=== PATIENT | female | born 1965 | race Caucasian/White ===

== ENCOUNTER 2022-11-13 14:39 | Inpatient (IN) | payer MEDICAID, OTHER ==
[2022-11-13] MEDS ORDERED: PERCOCET 5MG/325MG TAB PO ONE (18:25)
[2022-11-13] MEDS ORDERED: PERCOCET 5MG/325MG TAB PO PRN ×2 (18:25)
[2022-11-13] MEDS ORDERED: PROMETHAZINE 25MG/ML 1ML VIAL IV PRN (18:35)
[2022-11-13 18:51] LABS: HEMATOCRIT 29.5 % (36.0-47.0); HEMOGLOBIN 8.2 g/dl (12.0-15.5); MEAN CORPUSCULAR HEMOGLOBIN 19.9 pg (27.0-33.0); MEAN CORPUSCULAR HGB CONC 27.8 g/dl (32.0-36.5); MEAN CORPUSCULAR VOLUME 71.6 fl (80.0-96.0); PLATELET COUNT, AUTOMATED 659 10^3/uL (150-450); RED BLOOD COUNT 4.12 10^6/uL (4.00-5.40); WHITE BLOOD COUNT 5.9 10^3/uL (4.0-10.0)
[2022-11-13 18:54] VITALS: BP 176/98
[2022-11-13 19:02] LABS: INR 0.95; PROTHROMBIN TIME 12.9 SECONDS (12.5-14.5)
[2022-11-13] MEDS ORDERED: amLODIPine 5 MG TAB PO ONE ×2 (19:10→21:15)
[2022-11-13] MEDS ORDERED: MORPHINE 2 MG/ML 1ML VIAL IV PRN (19:10)
[2022-11-13 19:13] LABS: VENOUS BASE EXCESS 1.2 (-2.0-2.0); VENOUS HCO3 27.2 MMOL/L (23.0-27.0); VENOUS O2 SATURATION 80.3 % (60.0-80.0); VENOUS PARTIAL PRESSURE CO2 50.1 mmHg (38.0-50.0); VENOUS PARTIAL PRESSURE O2 47.8 mmHg (30.0-50.0); VENOUS PH 7.353 UNITS (7.330-7.430); VENOUS STANDARD HCO3 25.3 MMOL/L; VENOUS TOTAL CO2 28.8 MMOL/L (24.0-28.0)
[2022-11-13 19:20] LABS: ALBUMIN 3.2 G/DL (3.2-5.2); ALKALINE PHOSPHATASE 97 U/L (46-116); ALT/SGPT 24 U/L (7.0-40); AST/SGOT 15 U/L (<34); BILIRUBIN,TOTAL 0.3 MG/DL (0.3-1.2); BLOOD UREA NITROGEN 16 MG/DL (9-23); CALCIUM LEVEL 9.2 MG/DL (8.5-10.1); CARBON DIOXIDE LEVEL 27 MMOL/L (20-31); CHLORIDE LEVEL 106 MMOL/L (98-107); CK-MB VALUE MASS 1.3 NG/ML (<3.6); CREATININE FOR GFR 0.62 MG/DL (0.55-1.30); GLOMERULAR FILTRATION RATE > 60.0 (>51); GLUCOSE, FASTING 89 MG/DL (60-100); POTASSIUM SERUM 4.4 MMOL/L (3.5-5.1); SODIUM LEVEL 140 MMOL/L (136-145); TOTAL PROTEIN 6.1 G/DL (5.7-8.2)
[2022-11-13 19:21] LABS: PERCENT SATURATION 3.5 % (13.2-45.0)
[2022-11-13 19:22] LABS: MB/CK RELATIVE INDEX 1.27 (< OR =4)
[2022-11-13 19:23] LABS: FERRITIN 7.3 NG/ML (7.3-270.7)
[2022-11-13 20:00] VITALS: BP 147/92
[2022-11-13] MEDS ORDERED: ISOVUE-370 76% 100ML VIAL As Ordered ONE (20:06)
[2022-11-13] MEDS ORDERED: diphenhydrAMINE 25MG CAP PO PRN (20:10)
[2022-11-13] MEDS ORDERED: ALEV220T22 PO (20:24)
[2022-11-13] MEDS ORDERED: OMEP1CAP73 PO (20:24)
[2022-11-13] MEDS ORDERED: HOME MED LIST COMPLETE! XX SCH (20:25)
[2022-11-13] MEDS: PANTOPRAZOLE 40MG VIAL IV SCH (21:06)
[2022-11-13] MEDS: SUCRALFATE SUSP 1GM/10ML UD PO SCH (21:07)
[2022-11-13] MEDS ORDERED: GI COCKTAIL 50ML BTL(HYOSCYAMINE/MAALOX/LIDOCAINE VISCOUS)(1:3:1) PO PRN (21:15)
[2022-11-14 06:00] VITALS: BP 127/80
[2022-11-14] MEDS: ISOSORBIDE DIN (ISORDIL) 10MG TAB PO SCH ×3 (06:35→21:01)
[2022-11-14 07:14] LABS: HEMATOCRIT 29.9 % (36.0-47.0); HEMOGLOBIN 8.3 g/dl (12.0-15.5); MEAN CORPUSCULAR HEMOGLOBIN 19.8 pg (27.0-33.0); MEAN CORPUSCULAR HGB CONC 27.8 g/dl (32.0-36.5); MEAN CORPUSCULAR VOLUME 71.2 fl (80.0-96.0); PLATELET COUNT, AUTOMATED 686 10^3/uL (150-450); WHITE BLOOD COUNT 5.8 10^3/uL (4.0-10.0)
[2022-11-14] MEDS ORDERED: BISACODYL 10MG SUPP PR ONE (07:15)
[2022-11-14 07:22] LABS: BARBITURATES URINE NEGATIVE (NEGATIVE); COCAINE METABOLITE URINE NEGATIVE (NEGATIVE)
[2022-11-14 07:23] LABS: BENZODIAZEPINES URINE NEGATIVE (NEGATIVE); CANNABINOIDS URINE NEGATIVE (NEGATIVE); METHADONE URINE NEGATIVE (NEGATIVE); OPIATES URINE NEGATIVE (NEGATIVE); PHENCYCLIDINE URINE NEGATIVE (NEGATIVE)
[2022-11-14 07:29] LABS: AMPHETAMINES LEVEL URINE POSITIVE (NEGATIVE)
[2022-11-14 07:43] LABS: BLOOD UREA NITROGEN 11 MG/DL (9-23); CALCIUM LEVEL 8.2 MG/DL (8.5-10.1); CARBON DIOXIDE LEVEL 25 MMOL/L (20-31); CHLORIDE LEVEL 105 MMOL/L (98-107); GLOMERULAR FILTRATION RATE > 60.0 (>51); GLUCOSE, FASTING 85 MG/DL (60-100); POTASSIUM SERUM 4.2 MMOL/L (3.5-5.1); SODIUM LEVEL 139 MMOL/L (136-145)
[2022-11-14] MEDS: D5W/0.45% SODIUM CHLORIDE 1,000 ML IV SCH ×2 (09:17→17:15)
[2022-11-14] MEDS: PANTOPRAZOLE 40MG VIAL IV SCH ×2 (09:18→20:59)
[2022-11-14] MEDS: SUCRALFATE SUSP 1GM/10ML UD PO SCH ×4 (09:19→20:59)
[2022-11-14] MEDS ORDERED: E-Z-GAS II EFFERVESCENT PACKET (SODIUM BICARB./CITRIC ACID/SIMETHICONE) As Ordered ONE (12:19)
[2022-11-14] MEDS ORDERED: E-Z-PAQUE 96% w/w SUSP 176GM BTL As Ordered ONE (12:19)
[2022-11-14] MEDS ORDERED: E-Z-HD 98% w/w 340GM SUSP BTL As Ordered ONE (12:19)
[2022-11-14 14:00] VITALS: BP 122/75
[2022-11-14] MEDS ORDERED: ACETAMINOPHEN TAB 650MG DOSE (2X325MG) PO PRN (14:50)
[2022-11-14 21:08] VITALS: BP 121/76
[2022-11-15] MEDS: ISOSORBIDE DIN (ISORDIL) 10MG TAB PO SCH (05:26)
[2022-11-15 06:00] VITALS: BP 128/76
[2022-11-15 06:09] LABS: HEMATOCRIT 30.8 % (36.0-47.0); HEMOGLOBIN 8.6 g/dl (12.0-15.5); MEAN CORPUSCULAR HEMOGLOBIN 19.8 pg (27.0-33.0); MEAN CORPUSCULAR HGB CONC 27.9 g/dl (32.0-36.5); PLATELET COUNT, AUTOMATED 747 10^3/uL (150-450); RED BLOOD COUNT 4.34 10^6/uL (4.00-5.40); WHITE BLOOD COUNT 5.2 10^3/uL (4.0-10.0)
[2022-11-15 06:20] LABS: BLOOD UREA NITROGEN 11 MG/DL (9-23); CALCIUM LEVEL 8.4 MG/DL (8.5-10.1); CARBON DIOXIDE LEVEL 25 MMOL/L (20-31); CHLORIDE LEVEL 107 MMOL/L (98-107); CREATININE FOR GFR 0.53 MG/DL (0.55-1.30); GLOMERULAR FILTRATION RATE > 60.0 (>51); GLUCOSE, FASTING 94 MG/DL (60-100); SODIUM LEVEL 140 MMOL/L (136-145)
[2022-11-15] MEDS ORDERED: PROT1TAB2 PO (10:11)
[2022-11-15] MEDS ORDERED: CARA1TAB6 PO (10:11)
[2022-11-15] MEDS ORDERED: PERCOCET PO (10:11)
[2022-11-15] MEDS ORDERED: FERR1TAB8 PO (10:14)
[2022-11-15] MEDS ORDERED: MIRA3350 PO (10:14)
[2022-11-15] MEDS ORDERED: SENO8.6T10 PO (10:14)
[2022-11-15] MEDS ORDERED: VITA500C19 PO (10:14)
[2022-11-15 10:15] VITALS: BP 148/96
[2022-11-15] MEDS: PANTOPRAZOLE 40MG VIAL IV SCH (10:15)
[2022-11-15] MEDS: SUCRALFATE SUSP 1GM/10ML UD PO SCH (10:15)
[2022-11-15] MEDS ORDERED: AMLO10TA PO (10:16)
[2022-11-15] MEDS ORDERED: SELF1KIT MC (10:16)
== END 2022-11-15 11:22 | disposition home or self-care (01) | DRG 253 ==
LOC: PREINTOOBSV 17:32 → M MSPAV 17:38 → OBSVTOIN 17:48
PROVIDERS: ADMIT Family Medicine; ATTEND General Practice
DX: K92.2 Gastrointestinal hemorrhage, unspecified (principal); N28.1 Cyst of kidney, acquired; M41.9 Scoliosis, unspecified; F17.210 Nicotine dependence, cigarettes, uncomplicated; K21.9 Gastro-esophageal reflux disease without esophagitis; K59.00 Constipation, unspecified; Z88.1 Allergy status to other antibiotic agents; Z71.6 Tobacco abuse counseling; Z90.49 Acquired absence of other specified parts of digestive tract

== ENCOUNTER → 2022-11-13 | Outpatient (CLI) | payer MEDICAID ==
[~2022-11-13] MED LIST: ALEV220T22 PO; OMEP1CAP73 PO
[2022-11-13 12:29] LABS: LDH LACTATE DEHYDROGENASE 368 U/L (120-246)
[2022-11-13 12:30] LABS: ALBUMIN 3.5 G/DL (3.2-5.2); ALKALINE PHOSPHATASE 101 U/L (46-116); ALT/SGPT 20 U/L (7.0-40); AST/SGOT 41 U/L (<34); BILIRUBIN,TOTAL 0.3 MG/DL (0.3-1.2); BLOOD UREA NITROGEN 14 MG/DL (9-23); CARBON DIOXIDE LEVEL 26 MMOL/L (20-31); CHLORIDE LEVEL 105 MMOL/L (98-107); CREATININE FOR GFR 0.58 MG/DL (0.55-1.30); FERRITIN 8.4 NG/ML (7.3-270.7); GLOMERULAR FILTRATION RATE > 60.0 (>51); GLUCOSE, FASTING 83 MG/DL (60-100); IRON (FE) 20 UG/DL (50-170); PERCENT SATURATION 4.7 % (13.2-45.0); POTASSIUM SERUM 4.1 MMOL/L (3.5-5.1); SODIUM LEVEL 140 MMOL/L (136-145); TOTAL IRON BINDING CAPACITY 428 UG/DL (250-425); TOTAL PROTEIN 6.4 G/DL (5.7-8.2)
[2022-11-13 12:31] LABS: BASO # 0.1 10^3/uL (0.0-0.2); BASO % 2.2 % (0.0-1.0); EOS # 0.3 10^3/uL (0.0-0.5); EOS % 6.2 % (0.0-3.0); HEMATOCRIT 27.8 % (36.0-47.0); HEMOGLOBIN 7.9 g/dl (12.0-15.5); LYMPH # 1.6 10^3/uL (1.5-5.0); LYMPH % 32.7 % (24.0-44.0); MEAN CORPUSCULAR HEMOGLOBIN 19.8 pg (27.0-33.0); MEAN CORPUSCULAR HGB CONC 28.4 g/dl (32.0-36.5); MEAN CORPUSCULAR VOLUME 69.7 fl (80.0-96.0); MONO # 0.4 10^3/uL (0.0-0.8); MONO % 7.8 % (2.0-8.0); NEUTROPHILS # 2.5 10^3/uL (1.5-8.5); NEUTROPHILS % 50.3 % (36.0-66.0); PLATELET COUNT, AUTOMATED 645 10^3/uL (150-450); RED BLOOD COUNT 3.99 10^6/uL (4.00-5.40); VITAMIN B12 LEVEL 531 PG/ML (211-911)
[2022-11-13 12:34] LABS: FOLATE > 24.0 NG/ML (>5.4)
== END ==
LOC: M LAB 11:08
PROVIDERS: ATTEND Family Medicine
DX: D64.9 Anemia, unspecified (principal); E83.51 Hypocalcemia; R79.89 Other specified abnormal findings of blood chemistry

== ENCOUNTER → 2022-11-25 | Outpatient (REF) | payer MEDICAID ==
[~2022-11-25] MED LIST changes: +AMLO10TA PO; +CARA1TAB6 PO; +FERR1TAB8 PO; +MIRA3350 PO; +PERCOCET PO; +PROT1TAB2 PO; +SELF1KIT MC; +SENO8.6T10 PO; +VITA500C19 PO
[2022-11-25 12:03] LABS: BASO # 0.1 10^3/uL (0.0-0.2); BASO % 1.5 % (0.0-1.0); EOS # 0.6 10^3/uL (0.0-0.5); EOS % 10.1 % (0.0-3.0); HEMATOCRIT 31.8 % (36.0-47.0); HEMOGLOBIN 9.1 g/dl (12.0-15.5); LYMPH # 1.9 10^3/uL (1.5-5.0); LYMPH % 30.6 % (24.0-44.0); MEAN CORPUSCULAR HEMOGLOBIN 21.3 pg (27.0-33.0); MEAN CORPUSCULAR HGB CONC 28.6 g/dl (32.0-36.5); MEAN CORPUSCULAR VOLUME 74.3 fl (80.0-96.0); MONO # 0.6 10^3/uL (0.0-0.8); MONO % 9.7 % (2.0-8.0); NEUTROPHILS # 2.9 10^3/uL (1.5-8.5); NEUTROPHILS % 47.9 % (36.0-66.0); PLATELET COUNT, AUTOMATED 674 10^3/uL (150-450); RED BLOOD COUNT 4.28 10^6/uL (4.00-5.40); WHITE BLOOD COUNT 6.1 10^3/uL (4.0-10.0)
[2022-11-25 12:09] LABS: ALBUMIN 3.3 G/DL (3.2-5.2); ALKALINE PHOSPHATASE 94 U/L (46-116); ALT/SGPT 20 U/L (7.0-40); AST/SGOT 34 U/L (<34); BILIRUBIN,TOTAL 0.3 MG/DL (0.3-1.2); BLOOD UREA NITROGEN 12 MG/DL (9-23); CARBON DIOXIDE LEVEL 26 MMOL/L (20-31); CHLORIDE LEVEL 106 MMOL/L (98-107); CREATININE FOR GFR 0.59 MG/DL (0.55-1.30); GLOMERULAR FILTRATION RATE > 60.0 (>51); GLUCOSE, FASTING 98 MG/DL (60-100); POTASSIUM SERUM 4.4 MMOL/L (3.5-5.1); SODIUM LEVEL 140 MMOL/L (136-145); TOTAL PROTEIN 6.1 G/DL (5.7-8.2)
== END ==
LOC: M SFHCLERA 08:09
PROVIDERS: ATTEND Family Medicine
DX: D64.9 Anemia, unspecified (principal); R10.11 Right upper quadrant pain

== ENCOUNTER → 2022-12-29 | Outpatient (REF) | payer MEDICAID ==
[2022-12-29 19:33] LABS: BASO # 0.1 10^3/uL (0.0-0.2); BASO % 1.4 % (0.0-1.0); EOS # 0.3 10^3/uL (0.0-0.5); EOS % 6.2 % (0.0-3.0); HEMATOCRIT 38.2 % (36.0-47.0); HEMOGLOBIN 11.5 g/dl (12.0-15.5); LYMPH # 2.2 10^3/uL (1.5-5.0); LYMPH % 43.1 % (24.0-44.0); MEAN CORPUSCULAR HEMOGLOBIN 24.6 pg (27.0-33.0); MEAN CORPUSCULAR HGB CONC 30.1 g/dl (32.0-36.5); MEAN CORPUSCULAR VOLUME 81.6 fl (80.0-96.0); MONO # 0.5 10^3/uL (0.0-0.8); MONO % 9.8 % (2.0-8.0); NEUTROPHILS % 39.3 % (36.0-66.0); PLATELET COUNT, AUTOMATED 466 10^3/uL (150-450); RED BLOOD COUNT 4.68 10^6/uL (4.00-5.40)
[2022-12-29 20:19] LABS: BLOOD UREA NITROGEN 14 MG/DL (9-23); CARBON DIOXIDE LEVEL 24 MMOL/L (20-31); CHLORIDE LEVEL 108 MMOL/L (98-107); CREATININE FOR GFR 0.61 MG/DL (0.55-1.30); GLOMERULAR FILTRATION RATE > 60.0 (>51); GLUCOSE, FASTING 93 MG/DL (60-100); POTASSIUM SERUM 4.3 MMOL/L (3.5-5.1); SODIUM LEVEL 140 MMOL/L (136-145)
== END ==
LOC: M SFHCLERA 12:57
PROVIDERS: ATTEND Family Medicine
DX: D64.9 Anemia, unspecified (principal); M79.89 Other specified soft tissue disorders

== ENCOUNTER → 2023-01-16 | Outpatient (REF) | payer MEDICAID ==
[2023-01-16 17:21] LABS: BASO # 0.1 10^3/uL (0.0-0.2); BASO % 1.6 % (0.0-1.0); EOS # 0.3 10^3/uL (0.0-0.5); HEMATOCRIT 37.1 % (36.0-47.0); HEMOGLOBIN 11.4 g/dl (12.0-15.5); LYMPH # 2.2 10^3/uL (1.5-5.0); LYMPH % 40.1 % (24.0-44.0); MEAN CORPUSCULAR HEMOGLOBIN 25.6 pg (27.0-33.0); MEAN CORPUSCULAR HGB CONC 30.7 g/dl (32.0-36.5); MEAN CORPUSCULAR VOLUME 83.4 fl (80.0-96.0); MONO # 0.6 10^3/uL (0.0-0.8); MONO % 10.4 % (2.0-8.0); NEUTROPHILS # 2.3 10^3/uL (1.5-8.5); NEUTROPHILS % 41.7 % (36.0-66.0); PLATELET COUNT, AUTOMATED 445 10^3/uL (150-450); RED BLOOD COUNT 4.45 10^6/uL (4.00-5.40); WHITE BLOOD COUNT 5.5 10^3/uL (4.0-10.0)
== END ==
LOC: M SFHCLERA 11:50
PROVIDERS: ATTEND Family Medicine
DX: D75.839 Thrombocytosis, unspecified (principal); D64.9 Anemia, unspecified

== ENCOUNTER → 2023-01-29 | Day surgery (SDC) | payer OTHER ==
[~2023-01-29] VITALS: Ht 157.5 cm; Wt 47.1 kg
[~2023-01-29] MED LIST changes: +ACET650T61 PO; +ALBU8.5H; +AMLO1TAB24 PO; +B-122500 PO; +CYCL-707 PO; +NS 1,000 ML IV ONE; +SUCR1TAB56 PO; +fentaNYL 100 MCG/2 ML INJECTION As Ordered ONE; +propofoL 200 MG/20 ML VIAL As Ordered ONE
[2023-01-29 15:15] VITALS: TEMP 97
[2023-01-29 15:34] VITALS: BP 122/71; O2SAT 97
== END | disposition home or self-care (01) ==
LOC: M OPP 11:56
PROVIDERS: ATTEND Internal Medicine Gastroenterology
DX: Z12.11 Encounter for screening for malignant neoplasm of colon (principal); K64.4 Residual hemorrhoidal skin tags; K64.8 Other hemorrhoids; D50.9 Iron deficiency anemia, unspecified; K29.70 Gastritis, unspecified, without bleeding; K31.811 Angiodysplasia of stomach and duodenum with bleeding; R93.3 Abnormal findings on diagnostic imaging of other parts of digestive tract; F17.200 Nicotine dependence, unspecified, uncomplicated; Z79.1 Long term (current) use of non-steroidal anti-inflammatories (NSAID); Z79.52 Long term (current) use of systemic steroids; Z79.899 Other long term (current) drug therapy; Z88.1 Allergy status to other antibiotic agents
CPT/HCPCS: 43239; 45378; 88305; J3010

== ENCOUNTER → 2023-03-25 | Outpatient (REF) | payer OTHER, MEDICAID ==
[~2023-03-25] MED LIST changes: -NS 1,000 ML IV ONE; -fentaNYL 100 MCG/2 ML INJECTION As Ordered ONE; -propofoL 200 MG/20 ML VIAL As Ordered ONE
[2023-03-25 18:21] LABS: BASO # 0.1 10^3/uL (0.0-0.2); BASO % 0.9 % (0.0-1.0); EOS # 0.4 10^3/uL (0.0-0.5); EOS % 5.3 % (0.0-3.0); HEMATOCRIT 43.5 % (36.0-47.0); HEMOGLOBIN 13.7 g/dl (12.0-15.5); LYMPH # 2.2 10^3/uL (1.5-5.0); LYMPH % 33.3 % (24.0-44.0); MEAN CORPUSCULAR HGB CONC 31.5 g/dl (32.0-36.5); MONO # 0.5 10^3/uL (0.0-0.8); MONO % 7.3 % (2.0-8.0); NEUTROPHILS # 3.5 10^3/uL (1.5-8.5); NEUTROPHILS % 52.9 % (36.0-66.0); PLATELET COUNT, AUTOMATED 358 10^3/uL (150-450); RED BLOOD COUNT 4.73 10^6/uL (4.00-5.40); WHITE BLOOD COUNT 6.6 10^3/uL (4.0-10.0)
[2023-03-25 18:48] LABS: FERRITIN 22.9 NG/ML (7.3-270.7)
[2023-03-25 18:49] LABS: IRON (FE) 51 UG/DL (50-170); PERCENT SATURATION 15.1 % (13.2-45.0); TOTAL IRON BINDING CAPACITY 337 UG/DL (250-425)
[2023-03-25 18:50] LABS: ALKALINE PHOSPHATASE 101 U/L (46-116); ALT/SGPT 24 U/L (7.0-40); AST/SGOT 22 U/L (<34); BILIRUBIN,DIRECT < 0.1 MG/DL (<0.4); BILIRUBIN,TOTAL 0.3 MG/DL (0.3-1.2); BLOOD UREA NITROGEN 16 MG/DL (9-23); CREATININE FOR GFR 0.49 MG/DL (0.55-1.30); GLOMERULAR FILTRATION RATE > 60.0 (>51); TOTAL PROTEIN 7.1 G/DL (5.7-8.2)
[2023-03-25 18:53] LABS: FOLATE 14.3 NG/ML (>5.4); VITAMIN B12 LEVEL > 2000 PG/ML (211-911)
== END ==
LOC: M LABDRAWC 17:18
PROVIDERS: ATTEND Internal Medicine Gastroenterology
DX: D64.9 Anemia, unspecified (principal)

== ENCOUNTER → 2023-05-04 | Outpatient (CLI) | payer OTHER, MEDICAID | LOC: M SOG 07:51 | PROVIDERS: ATTEND Orthopaedic Surgery | DX: M51.36 Other intervertebral disc degeneration, lumbar region (principal); M19.032 Primary osteoarthritis, left wrist; M41.34 Thoracogenic scoliosis, thoracic region; M54.50 Low back pain, unspecified; M79.641 Pain in right hand; M79.642 Pain in left hand ==

== ENCOUNTER 2023-07-20 07:30 | Day surgery (SDC) | payer OTHER ==
[~2023-07-20] VITALS: Ht 157.5 cm; Wt 54.2 kg
[~2023-07-20 07:30] MED LIST changes: +DULO1CAP6 PO; +LIDOCAINE W/EPINEPHRINE 1% 20ML VIAL XX ONE; +OMEP40CA4 PO; +SODIUM BICARBONATE 8.4% INJ 50MEQ 50ML VIAL XX ONE; +TRAM50TA2 PO
[2023-07-20] MEDS ORDERED: LR 1,000 ML IV SCH (07:50)
[2023-07-20] MEDS ORDERED: BACITRACIN OINTMENT 30GM TUBE As Ordered ONE (11:18)
[2023-07-20 11:50] VITALS: BP 133/85; TEMP 98.2; O2SAT 92
== END 2023-07-20 12:11 | disposition home or self-care (01) ==
LOC: M SDC 07:30
PROVIDERS: ATTEND Orthopaedic Surgery Hand Surgery
DX: G56.02 Carpal tunnel syndrome, left upper limb (principal); I10 Essential (primary) hypertension; K21.9 Gastro-esophageal reflux disease without esophagitis; Z79.899 Other long term (current) drug therapy; Z88.1 Allergy status to other antibiotic agents; F17.210 Nicotine dependence, cigarettes, uncomplicated

== ENCOUNTER 2023-08-04 06:52 | Day surgery (SDC) | payer OTHER ==
[~2023-08-04] VITALS: Ht 157.5 cm; Wt 53.3 kg
[~2023-08-04 06:52] MED LIST changes: -LIDOCAINE W/EPINEPHRINE 1% 20ML VIAL XX ONE; -SODIUM BICARBONATE 8.4% INJ 50MEQ 50ML VIAL XX ONE
[2023-08-04] MEDS ORDERED: SODIUM BICARBONATE 8.4% INJ 50MEQ 50ML VIAL XX ONE (07:30)
[2023-08-04] MEDS ORDERED: LIDOCAINE W/EPINEPHRINE 1% 20ML VIAL XX ONE (07:30)
[2023-08-04 08:47] VITALS: BP 144/94; TEMP 99.1; O2SAT 94
== END 2023-08-04 09:05 | disposition home or self-care (01) ==
LOC: M SDC 06:52
PROVIDERS: ATTEND Orthopaedic Surgery Hand Surgery
DX: G56.01 Carpal tunnel syndrome, right upper limb (principal); I10 Essential (primary) hypertension; D64.9 Anemia, unspecified; F17.210 Nicotine dependence, cigarettes, uncomplicated; K21.9 Gastro-esophageal reflux disease without esophagitis; Z79.899 Other long term (current) drug therapy; Z88.1 Allergy status to other antibiotic agents

== ENCOUNTER → 2024-01-27 | Outpatient (REF) | LOC: M PLAIMG 10:05 | PROVIDERS: ATTEND Internal Medicine | DX: R52 Pain, unspecified (principal) ==

== ENCOUNTER → 2024-07-25 | Outpatient (REF) | payer MEDICAID, OTHER ==
[~2024-07-25] MED LIST changes: -VITA500C19 PO; +VITA500C22 PO
== END ==
LOC: M SFHCWAGY 15:15 → M LAB REF 15:15
PROVIDERS: ATTEND Obstetrics & Gynecology
DX: N95.0 Postmenopausal bleeding (principal)

== ENCOUNTER → 2024-08-23 | Outpatient (CLI) | payer OTHER | LOC: M RAD 12:26 | PROVIDERS: ATTEND Obstetrics & Gynecology | DX: N95.0 Postmenopausal bleeding (principal) ==

== ENCOUNTER → 2025-02-03 | Outpatient (REF) | payer OTHER ==
[~2025-02-03] MED LIST changes: +AMLO-751 PO; -AMLO10TA PO
[2025-02-07 13:28] LABS: HPV APTIMA Not Detected (Not Detected)
== END ==
LOC: M SFHCWAGY 15:10
PROVIDERS: ATTEND Obstetrics & Gynecology
DX: Z12.4 Encounter for screening for malignant neoplasm of cervix (principal); R87.610 Atypical squamous cells of undetermined significance on cytologic smear of cervix (ASC-US)

== ENCOUNTER → 2025-04-05 | Outpatient (REF) | payer OTHER | LOC: M SFHCWAGY 12:40 | PROVIDERS: ATTEND Obstetrics & Gynecology | DX: R35.0 Frequency of micturition (principal) ==

== ENCOUNTER 2025-06-21 14:29 | Inpatient (IN) | payer MEDICARE, OTHER, SELFPAY ==
[~2025-06-21] VITALS: Ht 157.5 cm; Wt 50.5 kg
[~2025-06-21 14:29] MED LIST changes: -ALBU8.5H; +ALBU8.5H INH
[2025-06-21 15:40] LABS: KETONE, URINE AUTO RFX NEGATIVE (NEGATIVE); LEUKOCYTE ESTERASE UR AUTO RFX 3+ (NEGATIVE); NITRITE, URINE AUTO RFX POSITIVE (NEGATIVE); RBC, URINE AUTO RFX 117 /HPF (0-3); SQUAM EPITHELIAL CELL UR AURFX 2 /HPF (0-6); WBC, URINE AUTO RFX TNTC /HPF (0-3)
[2025-06-21 16:32] LABS: BASO # 0.1 10^3/uL (0.0-0.2); BASO % 0.5 % (0.0-1.0); EOS # 0.1 10^3/uL (0.0-0.5); EOS % 0.4 % (0.0-3.0); LYMPH # 1.4 10^3/uL (1.5-5.0); LYMPH % 6.5 % (24.0-44.0); MONO # 0.9 10^3/uL (0.0-0.8); MONO % 4.1 % (2.0-8.0); NEUTROPHILS # 18.4 10^3/uL (1.5-8.5); NEUTROPHILS % 88.1 % (36.0-66.0); PLATELET COUNT, AUTOMATED 800 10^3/uL (150-450)
[2025-06-21] MEDS: NS (Normal Saline) 0.9% 1,000 ML IV ONE (16:39)
[2025-06-21] MEDS: KETOROLAC 30 MG/ML 1 ML VIAL IV ONE (16:39)
[2025-06-21 17:03] LABS: CALCIUM LEVEL 8.6 MG/DL (8.3-10.6); CARBON DIOXIDE LEVEL 28.0 MMOL/L (20-31); CHLORIDE LEVEL 106.0 MMOL/L (98-107); CREATININE FOR GFR 0.83 MG/DL (0.55-1.30); GLOMERULAR FILTRATION RATE 80.2 (>45); POTASSIUM SERUM 4.1 MMOL/L (3.5-5.1); SODIUM LEVEL 143.0 MMOL/L (136-145)
[2025-06-21] MEDS: MORPHINE 2 MG/ML 1 ML VIAL IV ONE (18:10)
[2025-06-21] MEDS: ACETAMINOPHEN *IV* 1,000 MG in IV 1 EA IV ONE (18:11)
[2025-06-21] MEDS: cefTRIAXone SOD 1 GM in DEXTROSE 5% (D5W) ADV/MINI-BAG 50 ML IV ONE (18:58)
[2025-06-21] MEDS: MORPHINE 2 MG/ML 1 ML VIAL IV PRN ×2 (20:27→22:42)
[2025-06-21] MEDS ORDERED: FERR325T3 PO (21:04)
[2025-06-21] MEDS ORDERED: VITA500C24 PO (21:04)
[2025-06-21] MEDS ORDERED: HOME MED LIST COMPLETE! XX SCH (21:05)
[2025-06-21 22:20] VITALS: BP 100/56; TEMP 97.3; O2SAT 93
[2025-06-22] VITALS (11 sets, daily range): BP systolic 82–107; BP diastolic 52–66; TEMP 97.5–99.1; O2SAT 85–97
[2025-06-22] MEDS: ONDANSETRON 4MG/2ML VIAL IV PRN (03:14)
[2025-06-22] MEDS: OMEPRAZOLE 20MG CAP PO SCH (03:52)
[2025-06-22 06:20] LABS: PLATELET COUNT, AUTOMATED 585 10^3/uL (150-450)
[2025-06-22 06:30] LABS: CALCIUM LEVEL 8.0 MG/DL (8.3-10.6); CARBON DIOXIDE LEVEL 24.0 MMOL/L (20-31); CHLORIDE LEVEL 105.0 MMOL/L (98-107); CREATININE FOR GFR 1.31 MG/DL (0.55-1.30); GLOMERULAR FILTRATION RATE 46.1 (>45); MAGNESIUM LEVEL 1.2 MG/DL (1.8-2.4); POTASSIUM SERUM 4.8 MMOL/L (3.5-5.1); SODIUM LEVEL 138.0 MMOL/L (136-145)
[2025-06-22] MEDS ORDERED: LIDOCAINE 2% 100 MG/5 ML SDV (FOR ANES.) As Ordered ONE (08:00)
[2025-06-22] MEDS ORDERED: MIDAZOLAM INJ 2 MG/2 ML VIAL As Ordered ONE (08:01)
[2025-06-22] MEDS ORDERED: ACETAMINOPHEN 1000MG/100ML IV BAG As Ordered ONE (08:36)
[2025-06-22] MEDS ORDERED: PHENYLephrine 500MCG 5ML (100MCG/ML) SYRINGE As Ordered ONE (08:44)
[2025-06-22] MEDS ORDERED: KETOROLAC 30 MG/ML 1 ML VIAL As Ordered ONE (08:48)
[2025-06-22] MEDS ORDERED: ONDANSETRON 4MG/2ML VIAL As Ordered ONE (08:48)
[2025-06-22] MEDS ORDERED: dexAMETHasone 4 MG/ML 1 ML VIAL As Ordered ONE (08:48)
[2025-06-22] MEDS: ISOVUE-300 61% 100 ML VIAL As Ordered ONE (09:00)
[2025-06-22] MEDS ORDERED: ONDANSETRON 4MG/2ML VIAL IV PRN (09:45)
[2025-06-22] MEDS: LR 1,000 ML IV SCH (09:45)
[2025-06-22] MEDS: HYDROMORPHONE HCL 0.5 MG/0.5 ML SYRINGE IV PRN (10:27)
[2025-06-22] MEDS: NS (Normal Saline) 0.9% 1,000 ML IV SCH (11:04)
[2025-06-22] MEDS: D5W/0.9% SODIUM CHLORIDE 1,000 ML IV ONE (12:27)
[2025-06-22] MEDS: ENOXAPARIN 40 MG/0.4 ML SYRINGE (J1650 PER 10MG) SC SCH (12:30)
[2025-06-22] MEDS: MAG SULF 1GM/100ML (MAG RUN) 1 GM in IV 1 EA IV SCH (13:51)
[2025-06-22 14:32] LABS: CALCIUM LEVEL 7.2 MG/DL (8.3-10.6); CARBON DIOXIDE LEVEL 20.0 MMOL/L (20-31); CHLORIDE LEVEL 109.0 MMOL/L (98-107); CREATININE FOR GFR 1.16 MG/DL (0.55-1.30); GLOMERULAR FILTRATION RATE 53.3 (>45); MAGNESIUM LEVEL 1.2 MG/DL (1.8-2.4); POTASSIUM SERUM 3.9 MMOL/L (3.5-5.1); SODIUM LEVEL 140.0 MMOL/L (136-145)
[2025-06-22] MEDS ORDERED: ALBUTEROL 90 MCG/ACT 8 GM HFA INHALER INH PRN (14:35)
[2025-06-22] MEDS ORDERED: MAG SULF 1GM/100ML (MAG RUN) 1 GM in IV 1 EA IV SCH (14:35)
[2025-06-22] MEDS: NS (Normal Saline) 0.9% 1,000 ML IV ONE ×2 (17:04→17:27)
[2025-06-22] MEDS: ACETAMINOPHEN 325 MG TAB PO PRN (17:05)
[2025-06-22] MEDS: cefTRIAXone SOD 1 GM in DEXTROSE 5% (D5W) ADV/MINI-BAG 50 ML IV SCH (18:38)
[2025-06-22] MEDS: CYCLOBENZAPRINE 10 MG TABLET PO SCH (20:24)
[2025-06-23 03:50] VITALS: BP 102/62; TEMP 98.1; O2SAT 95
[2025-06-23 05:17] LABS: PLATELET COUNT, AUTOMATED 408 10^3/uL (150-450)
[2025-06-23 05:27] LABS: CALCIUM LEVEL 7.6 MG/DL (8.3-10.6); CARBON DIOXIDE LEVEL 21.0 MMOL/L (20-31); CHLORIDE LEVEL 109.0 MMOL/L (98-107); CREATININE FOR GFR 0.86 MG/DL (0.55-1.30); GLOMERULAR FILTRATION RATE 76.3 (>45); MAGNESIUM LEVEL 1.8 MG/DL (1.8-2.4); POTASSIUM SERUM 4.4 MMOL/L (3.5-5.1); SODIUM LEVEL 139.0 MMOL/L (136-145)
[2025-06-23 05:34] LABS: LYMPHOCYTES 7 % (16-44); NEUTROPHILS 91 % (28-66)
[2025-06-23 05:35] LABS: PLATELET ESTIMATE NORMAL (NORMAL)
[2025-06-23 07:06] LABS: ALT/SGPT 9.0 U/L (7.0-40); AST/SGOT 13.0 U/L (<34)
[2025-06-23 07:35] VITALS: BP 109/62; TEMP 98; O2SAT 97
[2025-06-23 12:02] VITALS: BP 109/63; TEMP 98.8; O2SAT 93
[2025-06-23 15:52] VITALS: BP 131/66; TEMP 97.6; O2SAT 94
[2025-06-23] MEDS: MORPHINE 2 MG/ML 1 ML VIAL IV PRN (17:14)
[2025-06-23] MEDS ORDERED: ISOVUE-370 76% 100 ML VIAL As Ordered ONE (17:15)
[2025-06-23 19:33] VITALS: BP 103/62; TEMP 98.1; O2SAT 92
[2025-06-23 23:28] VITALS: BP 146/81; TEMP 97.9; O2SAT 91
[2025-06-24 04:13] VITALS: BP 140/82; TEMP 98.9; O2SAT 94
[2025-06-24 07:06] LABS: BASO # 0.0 10^3/uL (0.0-0.2); BASO % 0.2 % (0.0-1.0); EOS # 0.2 10^3/uL (0.0-0.5); EOS % 1.1 % (0.0-3.0); LYMPH # 1.7 10^3/uL (1.5-5.0); LYMPH % 8.7 % (24.0-44.0); MONO # 1.3 10^3/uL (0.0-0.8); MONO % 6.7 % (2.0-8.0); NEUTROPHILS # 15.2 10^3/uL (1.5-8.5); NEUTROPHILS % 79.6 % (36.0-66.0); PLATELET COUNT, AUTOMATED 346 10^3/uL (150-450)
[2025-06-24 07:29] LABS: ALT/SGPT < 9 U/L (7.0-40); AST/SGOT 11 U/L (<34); CALCIUM LEVEL 7.6 MG/DL (8.3-10.6); CARBON DIOXIDE LEVEL 22 MMOL/L (20-31); CHLORIDE LEVEL 105 MMOL/L (98-107); CREATININE FOR GFR 0.78 MG/DL (0.55-1.30); GLOMERULAR FILTRATION RATE 85.8 (>45); POTASSIUM SERUM 3.5 MMOL/L (3.5-5.1); SODIUM LEVEL 137 MMOL/L (136-145)
[2025-06-24 08:25] VITALS: BP 113/67; TEMP 98.6; O2SAT 90
[2025-06-24] MEDS ORDERED: PERC5TAB12 PO (08:55)
[2025-06-24] MEDS ORDERED: LEVO1TAB40 PO (08:55)
[2025-06-24 09:39] VITALS: BP 110/64
[2025-06-24 09:45] VITALS: BP 110/64
[2025-06-24] MEDS: FUROSEMIDE 20 MG/2 ML VIAL IV ONE (09:45)
[2025-06-24] MEDS: TAMSULOSIN 0.4 MG CAP PO ONE (09:45)
[2025-06-24 12:09] VITALS: TEMP 97.6
== END 2025-06-24 13:12 | disposition home or self-care (01) | DRG 854 ==
LOC: M ED 14:29 → OBSVTOIN 14:30 → M ED INP 14:30 → M MS4PR 22:20 → M PCU 06-22 15:44
PROVIDERS: ADMIT Student in an Organized Health Care Education/Training Program; ATTEND Internal Medicine
PROC: 0T768DZ Dilation of Right Ureter with Intraluminal Device, Via Natural or Artificial Opening Endoscopic (ICD-10-PCS; 2025-06-22)
PROC: 0TC68ZZ Extirpation of Matter from Right Ureter, Via Natural or Artificial Opening Endoscopic (ICD-10-PCS; principal; 2025-06-22 12:00)
DX: A41.9 Sepsis, unspecified organism (principal); C66.1 Malignant neoplasm of right ureter; N13.6 Pyonephrosis; E83.42 Hypomagnesemia; I10 Essential (primary) hypertension; K21.9 Gastro-esophageal reflux disease without esophagitis; R65.20 Severe sepsis without septic shock; F17.200 Nicotine dependence, unspecified, uncomplicated; Z79.899 Other long term (current) drug therapy; Z88.1 Allergy status to other antibiotic agents